=== PATIENT | male | born 1955 | race Caucasian/White ===

== ENCOUNTER → 2017-06-18 | Outpatient (CLI) | payer OTHER ==
--- NOTE | 2017-06-18 09:29 | PN ---
Date/Time of Note Date/Time of Note DATE: 06/18/17 TIME: 09:25 Outpatient Progress Note HPI The patient presents today for a follow-up evaluation on his bilateral knees. We last saw him approximately 1 year ago at which point he had bilateral Monovisc injections done. He has been active since that time, and is here today to repeat the injections. He had no adverse reactions from his previous time. He is active and still playing doubles tennis routinely, but has been having increased discomfort to his bilateral knees which is causing him to limp. He presents today for a follow-up evaluation and bilateral Monovisc injections today. Physical Exam On exam today, he is alert and oriented 4, and in no acute distress. Exam of bilateral knees demonstrates 2+ patellofemoral crepitus. Varus and valgus forces are stable. Range of motion is 0-130. Varus and valgus forces are stable. Compartments are soft. Homans sign is negative. He is neurovascular intact distally. Assessment/Plan Assessment: Bilateral knee osteoarthritis Plan: The patient underwent bilateral Monovisc injection successfully to both knees today. There were no adverse reactions or complications from the injections. He was advised to modify his activity and take [id number] anti-inflammatories. We will see him back on an as-needed basis. The patient is to follow-up with Dr. Lopez at [facility]. Procedure: The procedure was fully explained to the patient and informed consent was obtained prior to the start of the procedure. The area was prepped and draped in sterile fashion using Betadine. Ethyl chloride was used to anesthetize the superolateral aspect of bilateral knees and 4 cc were injected intra-articularly bilaterally. A sterile dressing was applied. The patient tolerated procedure well. All questions and concerns were addressed at the time of procedure. LISA CHANG PA-C Jun 18, 2017 09:29
== END | disposition home or self-care (01) ==
LOC: HKI 09:40
PROVIDERS: ATTEND Orthopaedic Surgery
DX: M17.0 Bilateral primary osteoarthritis of knee (principal)
CPT/HCPCS: 20610; J7327